=== PATIENT | female | born 1935 | race Asian ===

== ENCOUNTER 2023-03-30 03:33 | Inpatient (IN) | payer SELFPAY ==
[~2023-03-30] VITALS: Ht 162.6 cm; Wt 60.3 kg
[2023-03-30] MEDS ORDERED: ACETAMINOPHEN 325MG TABLET PO ONE (04:15)
[2023-03-30 04:29] LABS: BASOPHILS % 0.7 % (0.0-2.0); EOSINOPHILS % 2.9 % (0.0-5.0); HEMATOCRIT. 29.7 % (36.0-48.0); HEMOGLOBIN. 9.8 g/dL (12.0-16.0); LYMPHOCYTES % 20.3 % (20.0-50.0); MEAN CORPUSCULAR HEMOGLOBIN 30.7 pg (28.0-32.0); MEAN CORPUSCULAR VOLUME 93.1 fL (81.0-99.0); MEAN PLATELET VOLUME 7.5 fl (7.4-10.4); MONOCYTES % 9.2 % (2.0-8.0); NEUTROPHILS % 66.9 % (40.0-76.0); PLATELET 145 x1000/uL (130-400); RED BLOOD CELL COUNT 3.19 mill/uL (4.2-5.4); WHITE BLOOD COUNT 5.2 x1000/uL (4.5-11.0)
[2023-03-30 04:37] LABS: CHLORIDE 112 mEq/L (98-107); INDEX HEMOLYSI 1 (1-3); INDEX ICTERIC 1 (1-4); INDEX LIPEMIC 1 (1-3); SODIUM 141 mEq/L (136-145)
[2023-03-30 04:49] LABS: ALANINE AMINOTRANSFERASE 46 IU/L (13-61); ALBUMIN 3.3 g/dL (3.4-5.0); ASPARTATE AMINOTRANSFERASE 43 IU/L (15-37); BILIRUBIN TOTAL 0.5 mg/dL (0.1-1.0); CALCIUM 8.5 mg/dL (8.5-10.1); CARBON DIOXIDE 24 mEq/L (21-32); CREATININE 0.7 mg/dL (0.6-1.3); GLUCOSE 108 mg/dL (70-105); NT PRO B-TYPE NATRIURETIC PEP 3384 pg/mL (5-125); PROTEIN TOTAL 6.6 g/dL (6.0-8.3); UREA NITROGEN BLOOD 19 mg/dL (7-21)
[2023-03-30 05:07] LABS: TROPONIN I HIGH SENSITIVITY 249 ng/L (<54)
[2023-03-30] MEDS ORDERED: ASPIRIN 325MG EC TABLET PO NR (05:15)
[2023-03-30] MEDS ORDERED: ACETAMINOPHEN 650MG/20.3ML UDC GT PRN (07:15)
[2023-03-30] MEDS ORDERED: ONDANSETRON HCL 4MG/2ML INJ IV PRN (07:15)
[2023-03-30] MEDS ORDERED: CLONIDINE 0.1MG TABLET PO PRN (07:15)
[2023-03-30] MEDS ORDERED: IPRATROPIUM/ALBUTEROL 0.5-3(2.5)MG/3ML NEB HHN PRN (07:15)
[2023-03-30] MEDS ORDERED: FUROSEMIDE 40MG/4ML VIAL IVP SCH ×2 (07:46→07:57)
[2023-03-30 08:00] VITALS: BP 136/72; PULSE 76; RESP 16; TEMP 98.3
[2023-03-30] MEDS ORDERED: NITROGLYCERIN 0.4MG TABLET SL SL PRN (08:15)
[2023-03-30 08:21] VITALS: BP 135/72; PULSE 76; RESP 16; TEMP 98.5
[2023-03-30 08:35] LABS: PHOSPHORUS 3.3 mg/dL (2.5-4.9); T4 FREE 1.34 ng/dL (0.76-1.46)
[2023-03-30 08:38] LABS: INDEX HEMOLYSI 1 (1-3)
[2023-03-30 09:09] LABS: FOLIC ACID (FOLATE) SERUM >20 ng/mL ng/mL (>5.38); VITAMIN B12 SERUM 576 pg/mL (211-911)
[2023-03-30] MEDS: ZINC SULFATE 220 MG ( 50 ) CAPSULE PO SCH (09:14)
[2023-03-30] MEDS: ASCORBIC ACID 500 MG TABLET PO SCH ×2 (09:14→20:48)
[2023-03-30] MEDS: FAMOTIDINE 20MG TABLET PO SCH ×2 (09:14→20:47)
[2023-03-30] MEDS: LOSARTAN 25 MG TABLET PO SCH (09:14)
[2023-03-30 12:00] VITALS: BP 151/95; PULSE 84; RESP 20; TEMP 98.6
[2023-03-30] MEDS ORDERED: APIXABAN 2.5 MG TABLET PO SCH (13:00)
[2023-03-30 16:00] VITALS: BP 124/65; PULSE 83; RESP 18; TEMP 96.9
[2023-03-30] MEDS: APIXABAN 2.5 MG TABLET PO SCH (17:55)
[2023-03-30] MEDS: SPIRONOLACTONE 25MG TABLET PO SCH (17:56)
[2023-03-30 18:17] LABS: FERRITIN 135 ng/mL (10-291)
[2023-03-30 20:00] VITALS: BP 145/70; PULSE 85; RESP 17; TEMP 97.5
[2023-03-30] MEDS: ATORVASTATIN CALCIUM 40MG TABLET PO SCH (20:47)
[2023-03-30] MEDS: METOPROLOL TARTRATE 25MG TABLET PO SCH (20:48)
[2023-03-30] MEDS ORDERED: FUROSEMIDE 40MG TABLET PO SCH (21:00)
[2023-03-30] MEDS ORDERED: ZOLPIDEM TARTRATE 5MG TABLET PO PRN (21:00)
[2023-03-30] MEDS ORDERED: APIX2.5T PO (22:43)
[2023-03-30] MEDS ORDERED: ATOR10TA69 PO (22:43)
[2023-03-30] MEDS ORDERED: ASPI-1406 PO (22:43)
[2023-03-30] MEDS ORDERED: QUET25TA36 PO (22:43)
[2023-03-30] MEDS ORDERED: MULT-626 PO (22:43)
[2023-03-31] VITALS: BP 146/84; PULSE 90; RESP 17; TEMP 97.5
[2023-03-31 04:00] VITALS: BP 157/88; PULSE 95; RESP 18; TEMP 97.7
[2023-03-31] MEDS: SPIRONOLACTONE 25MG TABLET PO SCH ×3 (05:19→17:55)
[2023-03-31 06:47] LABS: CHLORIDE 106 mEq/L (98-107); INDEX HEMOLYSI 1 (1-3); INDEX ICTERIC 1 (1-4); INDEX LIPEMIC 1 (1-3); POTASSIUM 3.5 mEq/L (3.5-5.1); SODIUM 138 mEq/L (136-145)
[2023-03-31 06:49] LABS: HEMATOCRIT 33.1 % (36.0-48.0); HEMOGLOBIN 11.4 g/dL (12.0-16.0); MEAN CORPUSCULAR HEMOGLOBIN 31.9 pg (28.0-32.0); MEAN CORPUSCULAR HGB CONC 34.3 g/dL (31.0-37.0); MEAN CORPUSCULAR VOLUME 92.8 fL (81.0-99.0); PLATELET 180 x1000/uL (130-400); RED BLOOD CELL COUNT 3.57 mill/uL (4.2-5.4); RED CELL DISTRIBUTION WIDTH 15.4 % (11.6-14.6); WHITE BLOOD COUNT 7.7 x1000/uL (4.5-11.0)
[2023-03-31 06:54] LABS: CALCIUM 8.9 mg/dL (8.5-10.1); CARBON DIOXIDE 26 mEq/L (21-32); CREATININE 0.8 mg/dL (0.6-1.3); GLUCOSE 106 mg/dL (70-105); UREA NITROGEN BLOOD 19 mg/dL (7-21)
[2023-03-31] MEDS: FUROSEMIDE 40MG TABLET PO SCH ×2 (07:15→17:55)
[2023-03-31 08:00] VITALS: BP 144/75; PULSE 58; RESP 15; TEMP 97
[2023-03-31] MEDS: LOSARTAN 25 MG TABLET PO SCH (08:38)
[2023-03-31] MEDS: APIXABAN 2.5 MG TABLET PO SCH ×2 (08:38→17:54)
[2023-03-31] MEDS: ASCORBIC ACID 500 MG TABLET PO SCH ×2 (08:39→20:58)
[2023-03-31] MEDS: FAMOTIDINE 20MG TABLET PO SCH ×2 (08:39→20:58)
[2023-03-31] MEDS: ZINC SULFATE 220 MG ( 50 ) CAPSULE PO SCH (08:39)
[2023-03-31] MEDS: METOPROLOL TARTRATE 25MG TABLET PO SCH ×2 (08:39→20:59)
[2023-03-31 20:00] VITALS: BP 116/54; PULSE 84; RESP 16; TEMP 97.5
[2023-03-31] MEDS: ATORVASTATIN CALCIUM 40MG TABLET PO SCH (20:58)
[2023-04-01] VITALS: BP 118/43; PULSE 86; RESP 19; TEMP 97
[2023-04-01 04:00] VITALS: BP 128/76; PULSE 64; RESP 17; TEMP 97.2
[2023-04-01] MEDS: FUROSEMIDE 40MG TABLET PO SCH (06:03)
[2023-04-01] MEDS: SPIRONOLACTONE 25MG TABLET PO SCH (06:05)
[2023-04-01 08:00] VITALS: BP 131/81; PULSE 91; RESP 18; TEMP 98.1
[2023-04-01] MEDS ORDERED: LOSA25TA26 PO (08:57)
[2023-04-01] MEDS ORDERED: METO25TA6 PO (08:57)
[2023-04-01] MEDS ORDERED: SPIR25TA PO (08:57)
[2023-04-01] MEDS ORDERED: FURO40TA5 PO (08:57)
[2023-04-01] MEDS: FAMOTIDINE 20MG TABLET PO SCH (09:04)
[2023-04-01] MEDS: APIXABAN 2.5 MG TABLET PO SCH (09:04)
[2023-04-01] MEDS: LOSARTAN 25 MG TABLET PO SCH (09:04)
[2023-04-01] MEDS: ASCORBIC ACID 500 MG TABLET PO SCH (09:04)
[2023-04-01] MEDS: ZINC SULFATE 220 MG ( 50 ) CAPSULE PO SCH (09:04)
[2023-04-01] MEDS: METOPROLOL TARTRATE 25MG TABLET PO SCH (09:04)
[2023-04-01 09:05] LABS: CHLORIDE 107 mEq/L (98-107); INDEX HEMOLYSI 1 (1-3); INDEX ICTERIC 1 (1-4); INDEX LIPEMIC 1 (1-3); POTASSIUM 3.8 mEq/L (3.5-5.1); SODIUM 139 mEq/L (136-145)
[2023-04-01 09:16] LABS: CALCIUM 8.7 mg/dL (8.5-10.1); CARBON DIOXIDE 28 mEq/L (21-32); CREATININE 0.8 mg/dL (0.6-1.3); GLUCOSE 93 mg/dL (70-105); UREA NITROGEN BLOOD 25 mg/dL (7-21)
[2023-04-01 10:34] VITALS: BP 18/146; PULSE 63; TEMP 97.7; O2SAT 74
== END 2023-04-01 11:35 | disposition home or self-care (01) | DRG 194 ==
LOC: ER 03:33 → 8WST 05:57 → EDBEDREQTM 06:21 → EDBEDREQ 06:21 → 8WST 21:18
PROVIDERS: ADMIT Internal Medicine; ATTEND Internal Medicine
DX: I50.33 Acute on chronic diastolic (congestive) heart failure (principal); J96.01 Acute respiratory failure with hypoxia; I21.A1 Myocardial infarction type 2; E46 Unspecified protein-calorie malnutrition; I27.20 Pulmonary hypertension, unspecified; D63.8 Anemia in other chronic diseases classified elsewhere; I69.354 Hemiplegia and hemiparesis following cerebral infarction affecting left non-dominant side; I48.91 Unspecified atrial fibrillation; F03.90 Unspecified dementia, unspecified severity, without behavioral disturbance, psychotic disturbance, mood disturbance, and anxiety; I45.10 Unspecified right bundle-branch block; R73.03 Prediabetes; I08.1 Rheumatic disorders of both mitral and tricuspid valves; D64.89 Other specified anemias; Z68.22 Body mass index [BMI] 22.0-22.9, adult; Z91.199 Patient's noncompliance with other medical treatment and regimen due to unspecified reason; Z79.82 Long term (current) use of aspirin; Z79.899 Other long term (current) drug therapy; Z79.01 Long term (current) use of anticoagulants; Z82.49 Family history of ischemic heart disease and other diseases of the circulatory system
CPT/HCPCS: 36415; 71045; 80048; 80053; 80061; 82550; 82607; 82728; 82746; 83036; 83540; 83550; 83605; 83735; 83880; 84100; 84145; 84439; 84443; 84484; 85025; 85027; 93005; 93306; 99285; J1940